=== PATIENT | male | born 1960 | race African-American/Black ===

== ENCOUNTER 2017-03-26 08:48 | Emergency (ER) | payer BC ==
[~2017-03-26 08:48] MED LIST: SLEEP AID25 MG OR
== END 2017-03-26 09:35 | disposition home or self-care (01) ==
LOC: ER 08:48
DX: M54.16 Radiculopathy, lumbar region (principal); F17.200 Nicotine dependence, unspecified, uncomplicated; Z79.899 Other long term (current) drug therapy
CPT/HCPCS: 96372; 99283